=== PATIENT | male | born 1985 | race Caucasian/White ===

== ENCOUNTER → 2017-06-04 | Outpatient (CLI) | payer OTHER ==
--- NOTE | 2017-06-05 07:20 | RAD ---
Right shoulder, 3 views, 06/04/2017: History: Shoulder contusion No fracture or dislocation is identified. IMPRESSION: No significant right shoulder abnormality is detected.
== END | disposition home or self-care (01) ==
LOC: RAD 17:22
PROVIDERS: ATTEND General Practice
DX: S40.011D Contusion of right shoulder, subsequent encounter (principal); X58.XXXD Exposure to other specified factors, subsequent encounter
CPT/HCPCS: 73030

== ENCOUNTER → 2019-02-20 | Outpatient (CLI) | payer OTHER ==
--- NOTE | 2019-02-20 13:50 | RAD ---
EXAM: Right knee, 2 views. HISTORY: Pain. COMPARISON: None. FINDINGS: 2 views of the right knee are obtained. There is no fracture, dislocation or subluxation. There is a trace joint joint effusion. IMPRESSION: No acute osseous finding. Trace joint fluid. Electronically signed by: Shruti Sweet MD (02/20/2019 1:47 PM) [id number]
--- NOTE | 2019-02-20 13:51 | RAD ---
EXAM: Cervical spine, 3 views; left shoulder, 3 views. HISTORY: Pain. COMPARISON: None. FINDINGS: Cervical spine: 3 views of the cervical spine are obtained. There is no listhesis. The vertebral bodies are normal in height and the disc spaces are preserved. Left shoulder: 3 views of the left shoulder obtained. There is no fracture, dislocation or subluxation. IMPRESSION: No acute osseous finding. Electronically signed by: Shruti Sweet MD (02/20/2019 1:49 PM) [place] [id number]
== END | disposition home or self-care (01) ==
LOC: PMG 11:56
PROVIDERS: ATTEND Family Medicine
DX: M54.2 Cervicalgia (principal); M25.512 Pain in left shoulder; M17.9 Osteoarthritis of knee, unspecified
CPT/HCPCS: 72040; 73030; 73560